=== PATIENT | male | born 1965 | race Caucasian/White ===

== ENCOUNTER 2016-09-22 10:14 | Emergency (ER) | payer BC, MEDICARE, OTHER ==
[~2016-09-22] VITALS: Ht 180.3 cm; Wt 80.7 kg
[~2016-09-22 10:14] MED LIST: ASPIRIN81 MG PO; CENTRAVITES PO; CITRACAL-VIT D1 EAC1 PO; COZAAR100 MG PO; HUMALOG MI100 UNIT/1 SUBCUT; LANTUS100 UNIT/1 SUBCUT; LOPRESSOR25 MG PO; NITROSTAT0.4 MG SL; PRAVACHOL40 MG PO; PRILOSEC20 MG PO; PROGRAF1 MG PO; RAPAMUNE1 MG PO; SILVADENE20 GM TOP; VASOTEC20 MG PO
== END 2016-09-22 12:04 | disposition short-term general hospital (02) ==
LOC: ER 10:14
DX: L03.116 Cellulitis of left lower limb (principal); E78.5 Hyperlipidemia, unspecified; I10 Essential (primary) hypertension; E10.9 Type 1 diabetes mellitus without complications; M81.0 Age-related osteoporosis without current pathological fracture; Z79.01 Long term (current) use of anticoagulants; Z79.899 Other long term (current) drug therapy; Z79.4 Long term (current) use of insulin; Z88.1 Allergy status to other antibiotic agents; Z91.048 Other nonmedicinal substance allergy status

== ENCOUNTER 2016-12-07 22:16 | Emergency (ER) | payer BC, MEDICARE, OTHER ==
[~2016-12-07] VITALS: Ht 177.8 cm; Wt 75.3 kg
== END 2016-12-07 22:58 | disposition short-term general hospital (02) ==
LOC: ER 22:16
DX: J06.9 Acute upper respiratory infection, unspecified (principal); E10.9 Type 1 diabetes mellitus without complications; L85.3 Xerosis cutis; I25.10 Atherosclerotic heart disease of native coronary artery without angina pectoris; K21.9 Gastro-esophageal reflux disease without esophagitis; E78.5 Hyperlipidemia, unspecified; I10 Essential (primary) hypertension; J45.909 Unspecified asthma, uncomplicated; Z95.1 Presence of aortocoronary bypass graft; Z88.1 Allergy status to other antibiotic agents